=== PATIENT | male | born 2005 | race Caucasian/White ===

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

== ENCOUNTER 2025-02-27 10:50 | Emergency (ER) | payer MEDICAID, SELFPAY ==
[2025-02-27 10:58] VITALS: BP 140/76; PULSE 98; RESP 18; TEMP 37.2; O2SAT 98; BMI 23.2
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
[2025-02-27 11:07] LABS: Coronavirus 19, PCR Not Detected (NotDetected); Influenza B, PCR Not Detected (NotDetected)
--- NOTE | 2025-02-27 11:07 | ED_ITS ---
<Statement entered by Shukri Enriquez MD - 02/27/25 14:37> I was consulted by the MIGUEL, and we discussed the complexity of the problems being addressed. I approved the treatment and management plan for this patient's care in the emergency department, thus performing a substantive portion of the medical decision making. Shukri Enriquez MD, ROMAN, FACEP Discharge Plan Disposition Patient Disposition: Home, Self-Care Prescriptions Prescriptions: New ondansetron 4 mg tablet,disintegrating 4 mg PO Q8H 5 Days Qty: 15 0RF ondansetron HCl 4 mg tablet 4 mg PO Q8H PRN (Reason: nausea and vomiting) 5 Days Qty: 30 0RF No Action pseudoephedrine HCl [Sudafed 12 Hour] 120 mg tablet extended release 120 mg PO Q12H PRN (Reason: nasal congestion) Qty: 20 0RF fluticasone propionate [Flonase Allergy Relief] 50 mcg/actuation spray,suspension 1 - 2 spray intranasal DAILY Qty: 16 0RF Rx Instructions: administer into each nostril daily Referrals Follow up/Referrals: Luz Calvo [Primary Care Provider, Medical] - See instructions Activity Restrictions/Add. Instructions Additional Instructions/Restrictions: Increase fluids and rest. Take meds as directed. Your strep and flu A were positive here in the ED. If any worsening symptoms occur please return to the ED or see your PCP. Clinical Impressions Clinical Impression: Strep pharyngitis, Influenza A Instructions Patient Instructions: DI for Strep Throat, DI for Influenza in Adults Print Language Print Language: Ivorian Discharge ED Provider: Shukri Enriquez General Adult HPI General Chief complaint: Upper Respiratory Infection Stated complaint: sore throat, sweats, chills, fever Time Seen by Provider: 02/27/25 11:01 Mode of Arrival: Ambulatory Source of Information: Patient Description of Symptoms (Recalled from ER Triage Doc. by RN): Pt presents for evaluation of URI symptoms. Pt states he started to run a fever of 103 yesterday, and has had congestion, sore throat, and cought History of Present Illness HPI narrative: 19-year-old male presents to the ED today for complaint of sore throat, fever of 103, cough no appetite and cannot taste. He did take medication this morning for his symptoms. He says his right tonsil looks like it has been bleeding. He has not been throwing up or coughing up any blood. Related Data Previous Rx's ?Medication ?Instructions ?Recorded fluticasone propionate 50 1 - 2 spray intranasal DAILY #16 07/03/23 mcg/actuation nasal grams spray,suspension (Flonase Allergy Relief) pseudoephedrine HCl 120 mg 120 mg PO Q12H PRN nasal tablet,extended release (Sudafed congestion #20 tabs 12 Hour) ondansetron 4 mg disintegrating 4 mg PO Q8H 5 days #15 tabs 02/27/25 tablet ondansetron HCl 4 mg tablet 4 mg PO Q8H PRN nausea and 02/27/25 vomiting 5 days #30 tabs Allergies Allergy/AdvReac Type Severity Reaction Status Date / Time No Known Allergies Allergy Verified 03/03/21 13:21 [facility] Disclaimer: The information contained in this section may have been updated after the patient was seen, as this information can be updated by other users. Medical History (Updated 02/27/25 @ 11:43 by Dagmar Gallardo (ED), SENIOR CHEMIST) No significant past medical history Social History (Updated 10/02/24 @ 16:33 by Shukri Enriquez MD) Smoking Status: Never smoker alcohol intake: never current occupational status: other Travel in the last 8 weeks?: None Have you lived/traveled outside [place] in past 30 days?: No Contact w/someone who lives/traveled outside [place] past 30 days?: No Exposure to someone with infectious disease in past 14 days?: No Do you have a fever (greater than 100.4 F or 38 C)?: No Have you tested positive for COVID-19?: No Exposed to someone with COVID-19 in past 14 days?: No Do you have a sore throat?: No Do you have a cough?: No Do you have any weakness?: No Do you have any diarrhea?: No Are you experiencing any unusual bleeding?: No Do you have any muscle aches/pain?: No Do you have any abdominal pain?: No Are you experiencing loss of taste or smell?: No Other Medical History Have you received the Flu Vaccine for this season: No Have you received the Pneumonia Vaccine: No ROS Obtained: Yes Systems reviewed as appropriate & no additional complaints except as documented Constitutional Constitutional: Reports as per HPI Physical Exam General General appearance: alert and in no apparent distress Head Head exam: normocephalic Eye Eye exam: Present PERRL and EOMI ENT ENT exam: Present mucous membranes moist and other (Tonsils swollen with erythema) Neck Neck exam: Present full ROM and trachea midline Respiratory Respiratory exam: Present normal lung sounds bilaterally Cardiovascular Cardiovascular exam: Present regular rate, normal rhythm, normal heart sounds, +S1 and +S2 Abdominal Exam Abdominal exam: Present soft and normal bowel sounds Extremities Exam Extremities exam: Present normal inspection, full ROM and normal capillary refill Neurological Exam Neurological exam: Present alert and oriented X3 Skin Skin exam: Present warm and dry Medical Decision Making Medical Records Screening: Per USPSTF and CDC recommendations, given the prevalence of disease in our [facility], it is our hospital?s policy to screen for HIV and viral Hepatitis for all patients aged 18 and over and those with ongoing risk factors. Stanley Inquiry Pt receiving controlled substance: No Stanley was queried for this patient: No Vital Signs: 02/27/25 10:58 Temperature 98.9 F Temperature Source Oral Pulse Rate [Right] 98 H Respiratory Rate 18 Blood Pressure [Right Arm] 140/76 Blood Pressure Mean [Right Arm] 97 Blood Pressure Source [Right Arm] Automatic Cuff Blood Pressure Position [Right Arm] Sitting 02 Sat by Pulse Oximetry 98 Oxygen Delivery Method Room Air Lab Data Lab Results 02/27/25 10:55: SARS-CoV-2 (PCR) Not detected, Influenza A Untype (PCR) Detected A, Influenza Type B (PCR) Not detected, Group A Strep Rapid Positive A Orders (Tests/Meds): ORDERS Category Date Time Status Rapid PCR Covid and Flu A/B Stat Lab 02/27/25 10:55 Completed Strep Scrn Group A (Rapid) Stat Lab 02/27/25 10:55 Completed Medical Decision Narrative: patient is a 19-year-old male presenting to the emergency department for evaluation of sore throat, cough, fever decreased appetite since yesterday. Patient is hemodynamically stable and nontoxic-appearing upon arrival, afebrile. Differential diagnosis includes strep, flu or COVID, viral illness, among others. Workup will be conducted with swabs. Patient was positive for flu A and strep. We will treat and patient will be discharged home. Critical Care Critical Care Time Critical Care Time: No
[2025-02-27 11:29] LABS: Strep Scrn Group A (Rapid) Positive (Negative)
[2025-02-27 11:30] LABS: Influenza A, PCR Detected (NotDetected)
[2025-02-27 11:49] VITALS: BP 140/76; PULSE 98; RESP 18; TEMP 37.2; O2SAT 98
== END 2025-02-27 11:54 | disposition home or self-care (01) ==
PROVIDERS: Emergency Provider Student in an Organized Health Care Education/Training Program; PCP Pediatrics
DX: J10.1 Influenza due to other identified influenza virus with other respiratory manifestations (principal); J02.0 Streptococcal pharyngitis; R50.9 Fever, unspecified
CPT/HCPCS: 87430; 87636; 99283